=== PATIENT | female | born 1965 | race Caucasian/White ===

== ENCOUNTER → 2016-12-17 | Outpatient (CLI) | payer BC ==
[~2016-12-17] MED LIST: FISH OIL 1,0001 EACH PO; LISINOPRIL20 MG PO; MIRALAX17 GM PO; MOBIC15 MG PO; MULTI-DAY VITA1 EACH PO; NAPROXEN 250 M250 MG PO; NORCO 5-325 TA1 EACH PO; WELLBUTRIN 75 M75 MG PO
== END ==
LOC: US 08:30
DX: R33.9 Retention of urine, unspecified (principal); N20.0 Calculus of kidney

== ENCOUNTER → 2017-01-08 | Outpatient (CLI) | payer BC ==
[2017-01-08 11:02] LABS: RED BLOOD COUNT 4.5 M/UL (4.00-5.10); WHITE BLOOD COUNT 7.7 K/UL (4.5-11.0)
[2017-01-08 11:23] LABS: BUN/CREATININE RATIO 24 (0-10)
== END ==
LOC: OPSV2 10:00
PROVIDERS: Obstetrics & Gynecology
DX: Z01.810 Encounter for preprocedural cardiovascular examination (principal); Z01.812 Encounter for preprocedural laboratory examination; N81.89 Other female genital prolapse
CPT/HCPCS: 36415; 80048; 81001; 85025; 93005

== ENCOUNTER → 2020-10-25 | Outpatient (CLI) | payer BC ==
[~2020-10-25] MED LIST changes: +ALEVE220 MG PO; +ANASTROZOLE1 MG PO; +ASPIR 8181 MG PO; +COLACE 100MG C100 MG PO; +DEXTROAMP-AMPHE10 MG PO; +ELIQUIS2.5 MG PO; +HYDROCODON-ACE1 EAC2 PO; +IMDUR ER TAB 3030 MG PO; +KENALOG CREAM 015 GM TD; +LIPITOR TAB 2020 MG PO; +LOPRESSOR 25 MG25 MG PO; +LYRICA100 MG PO; +NITROSTAT0.4 MG SL; +PRINIVIL20 MG PO; +TYLENOL 325MG325 MG PO
== END ==
LOC: LBRF 14:26
DX: N20.0 Calculus of kidney (principal)
CPT/HCPCS: 74018

== ENCOUNTER → 2020-11-18 | Day surgery (SDC) | payer BC | END | disposition home or self-care (01) | LOC: OR 11:22 | DX: N20.0 Calculus of kidney (principal); J30.9 Allergic rhinitis, unspecified; M19.90 Unspecified osteoarthritis, unspecified site; E78.5 Hyperlipidemia, unspecified; I10 Essential (primary) hypertension; K21.9 Gastro-esophageal reflux disease without esophagitis; K58.9 Irritable bowel syndrome, unspecified; G47.33 Obstructive sleep apnea (adult) (pediatric); F41.9 Anxiety disorder, unspecified; F32.9 Major depressive disorder, single episode, unspecified; Z85.3 Personal history of malignant neoplasm of breast | CPT/HCPCS: C1769; C2617; J1100; J1885; J1956; J2001; J2250; J2405; J2704; J3010; J7030; J7120 ==

== ENCOUNTER → 2020-11-29 | Outpatient (CLI) | payer BC | LOC: RAD 16:11 | DX: S37.009D Unspecified injury of unspecified kidney, subsequent encounter (principal); N20.0 Calculus of kidney | CPT/HCPCS: 74018 ==

== ENCOUNTER → 2021-01-31 | Outpatient (CLI) | payer BC | LOC: RAD 14:33 | DX: N20.0 Calculus of kidney (principal) | CPT/HCPCS: 74018 ==

== ENCOUNTER → 2021-02-17 | Outpatient (CLI) | payer BC ==
[2021-02-17 12:55] LABS: HEMOGLOBIN 14.2 gm/dl (12.3-15.3); RED BLOOD COUNT 4.41 M/UL (4.00-5.10); WHITE BLOOD COUNT 6.4 K/UL (4.5-11.0)
[2021-02-17 13:18] LABS: BUN/CREATININE RATIO 22 (0-10)
== END ==
LOC: LAB 12:06
PROVIDERS: Family Medicine
DX: E78.5 Hyperlipidemia, unspecified (principal); I10 Essential (primary) hypertension; E55.9 Vitamin D deficiency, unspecified
CPT/HCPCS: 80053; 80061; 84439; 84443; 85027

== ENCOUNTER → 2021-10-16 | Outpatient (CLI) | payer MEDICARE | LOC: KOH-I 13:21 | DX: H53.9 Unspecified visual disturbance (principal); R41.3 Other amnesia; M54.2 Cervicalgia; M54.50 Low back pain, unspecified; M25.551 Pain in right hip; M25.512 Pain in left shoulder; M47.812 Spondylosis without myelopathy or radiculopathy, cervical region; M51.36 Other intervertebral disc degeneration, lumbar region; M51.37 Other intervertebral disc degeneration, lumbosacral region; N20.0 Calculus of kidney; Z96.641 Presence of right artificial hip joint; Z96.642 Presence of left artificial hip joint | CPT/HCPCS: 70551; 72040; 72100; 73522 ==

== ENCOUNTER → 2021-11-13 | Outpatient (CLI) | payer MEDICARE | LOC: KOH-I 11:11 | DX: M51.17 Intervertebral disc disorders with radiculopathy, lumbosacral region (principal); M51.16 Intervertebral disc disorders with radiculopathy, lumbar region; M89.38 Hypertrophy of bone, other site | CPT/HCPCS: 72148 ==

== ENCOUNTER → 2022-02-03 | Outpatient (CLI) | payer MEDICARE | LOC: RAD 12:28 | DX: M54.16 Radiculopathy, lumbar region (principal) | CPT/HCPCS: 73502 ==

== ENCOUNTER → 2022-02-23 | Outpatient (CLI) | payer MEDICARE ==
[2022-02-23 12:06] LABS: HEMOGLOBIN 13.6 gm/dl (12.3-15.3); RED BLOOD COUNT 4.29 M/UL (4.00-5.10); WHITE BLOOD COUNT 5.5 K/UL (4.5-11.0)
[2022-02-23 12:29] LABS: BUN/CREATININE RATIO 19 (0-10)
[2022-02-24 09:15] LABS: THYROID PEROXIDASE (TPO) AB 12 IU/mL (0-34)
[2022-02-24 22:11] LABS: THYROGLOBULIN ANTIBODY <1.0 IU/mL (0.0-0.9)
== END ==
LOC: LAB 10:41
PROVIDERS: Nurse Practitioner Family
DX: Z00.00 Encounter for general adult medical examination without abnormal findings (principal); R53.83 Other fatigue; M25.551 Pain in right hip; M25.552 Pain in left hip; F41.8 Other specified anxiety disorders; E78.5 Hyperlipidemia, unspecified; I10 Essential (primary) hypertension; R60.9 Edema, unspecified; E53.8 Deficiency of other specified B group vitamins; E55.9 Vitamin D deficiency, unspecified; R41.3 Other amnesia
CPT/HCPCS: 36415; 80053; 80061; 81001; 82607; 84439; 84443; 85025; 86376; 86800; 87086

== ENCOUNTER 2022-03-19 13:33 | Inpatient (IN) | payer MEDICARE ==
[~2022-03-19] VITALS: Ht 165.1 cm; Wt 97.1 kg
[~2022-03-19 13:33] MED LIST changes: +ADDERALL 20 MG20 MG PO; +BUPROPION HCL150 MG PO; -DEXTROAMP-AMPHE10 MG PO; -IMDUR ER TAB 3030 MG PO; +ISOSORBIDE MONO30 MG PO; -LYRICA100 MG PO; +LYRICA150 MG PO; -WELLBUTRIN 75 M75 MG PO
[2022-03-19 14:31] LABS: HEMOGLOBIN 14.3 gm/dl (12.3-15.3); RED BLOOD COUNT 4.43 M/UL (4.00-5.10); WHITE BLOOD COUNT 19.1 K/UL (4.5-11.0)
[2022-03-19] MEDS ORDERED: TRAZODONE HCL50 MG PO (18:25)
[2022-03-19] MEDS ORDERED: CYMBALTA30 MG PO (18:25)
[2022-03-19] MEDS ORDERED: FLOMAX 0.4 MG0.4 MG PO (18:25)
[2022-03-19] MEDS ORDERED: HYDROCHLOROTH12.5 MG PO (18:25)
[2022-03-19] MEDS ORDERED: HYDROCODON-ACE1 EAC4 PO (18:26)
[2022-03-19] MEDS ORDERED: TYLENOL PM EX-1 EACH PO (18:27)
[2022-03-19] MEDS ORDERED: ALEVE220 M1 PO (18:27)
[2022-03-20 05:46] LABS: HEMOGLOBIN 12.3 gm/dl (12.3-15.3); RED BLOOD COUNT 3.86 M/UL (4.00-5.10); WHITE BLOOD COUNT 10.2 K/UL (4.5-11.0)
[2022-03-21 01:59] LABS: HEMOGLOBIN 13.4 gm/dl (12.3-15.3); WHITE BLOOD COUNT 8.8 K/UL (4.5-11.0)
[2022-03-21 02:04] LABS: RED BLOOD COUNT 4.27 M/UL (4.00-5.10)
[2022-03-22 05:47] LABS: WHITE BLOOD COUNT 8.1 K/UL (4.5-11.0)
[2022-03-22 05:48] LABS: RED BLOOD COUNT 3.8 M/UL (4.00-5.10)
--- NOTE | 2022-03-22 21:41 | NUR ---
TIME 2102, TELE NOTIFIED PT HR OF 145, PT HAD EPISODE OF EMESIS X1, HR BACK TO 94, OFFERED PRN ZOFRAN IVP, PT REFUSED D/T NO IV ACCESS, OFFERED TO CALL MD TO GET PO NAUSEA MEDS, PT DECLINED AND STATED HER PAIN MEDS MADE HER NAUSEOUS. TIME 2144, PT IN BED WITH EYES CLOSED, RESP ENL, HR 92.
[2022-03-23 10:00] LABS: HEMOGLOBIN 12.6 gm/dl (12.3-15.3); RED BLOOD COUNT 3.92 M/UL (4.00-5.10); WHITE BLOOD COUNT 8.2 K/UL (4.5-11.0)
[2022-03-23] MEDS ORDERED: CEFUROXIME500 MG PO (11:23)
--- NOTE | 2022-03-23 13:21 | NUR ---
PT STATES HER CLOTHES AND SHOES ARE NOT IN HER ROOM. HELPED PT LOOK IN ROOM. CHECKED ADMISSION FORM WHICH STATED ITEMS WERE PRESENT AT BEDSIDE IN ICU. CALLED ICU WHO STATED CLOTHES WERE NOT THERE. CALLED PCU WHO STATED CLOTHES WERE NOT THERE. CALLED HOUSEKEEPING AND CLOTHES COULD NOT BE FOUND. PERSONALLY SEARCHED SOILED ROOMS ON PCU AND NO CLOTHES WERE FOUND. PT MADE AWARE.
== END 2022-03-23 13:30 | disposition home or self-care (01) | DRG 871 ==
LOC: ER1 13:33 → CDU 17:57 → CCU 20:13 → PROG CARE 03-20 15:24 → MED SURG 4 03-21 01:46
PROVIDERS: Physician Assistant; Preventive Medicine Occupational Medicine; ADMIT Internal Medicine Infectious Disease
PROC: 3E03329 Introduction of Other Anti-infective into Peripheral Vein, Percutaneous Approach (ICD-10-PCS; principal; 2022-03-19)
PROC: 3E043XZ Introduction of Vasopressor into Central Vein, Percutaneous Approach (ICD-10-PCS; 2022-03-19)
DX: A41.51 Sepsis due to Escherichia coli [E. coli] (principal); N17.0 Acute kidney failure with tubular necrosis; R65.21 Severe sepsis with septic shock; N10 Acute pyelonephritis; Z20.822 Contact with and (suspected) exposure to COVID-19; Z96.641 Presence of right artificial hip joint; E86.0 Dehydration; G89.29 Other chronic pain; M54.9 Dorsalgia, unspecified; E66.9 Obesity, unspecified; B96.20 Unspecified Escherichia coli [E. coli] as the cause of diseases classified elsewhere; E83.42 Hypomagnesemia; N20.0 Calculus of kidney; I10 Essential (primary) hypertension; Z85.3 Personal history of malignant neoplasm of breast; Z90.49 Acquired absence of other specified parts of digestive tract; Z90.710 Acquired absence of both cervix and uterus; Z84.1 Family history of disorders of kidney and ureter
CPT/HCPCS: 36415; 71045; 80048; 80053; 81001; 83036; 83605; 83690; 83735; 85025; 85652; 86140; 87040; 87077; 87086; 87186; 93005; 96365; 96375; 99285; J0696; J1644; J2185; J2405; J3475; U0002

== ENCOUNTER → 2022-03-30 | Outpatient (CLI) | payer MEDICARE ==
[~2022-03-30] MED LIST changes: +ALEVE220 M1 PO; +CEFUROXIME500 MG PO; +CYMBALTA30 MG PO; +FLOMAX 0.4 MG0.4 MG PO; +HYDROCHLOROTH12.5 MG PO; +HYDROCODON-ACE1 EAC4 PO; +TRAZODONE HCL50 MG PO; +TYLENOL PM EX-1 EACH PO
[2022-03-30 16:07] LABS: HEMOGLOBIN 13.9 gm/dl (12.3-15.3); RED BLOOD COUNT 4.36 M/UL (4.00-5.10); WHITE BLOOD COUNT 11.7 K/UL (4.5-11.0)
[2022-04-01 12:14] LABS: CREATININE, URINE 142.2 mg/dL (Not Estab.)
== END ==
LOC: RAD 15:06
PROVIDERS: Nurse Practitioner Family
DX: J18.9 Pneumonia, unspecified organism (principal); R31.9 Hematuria, unspecified; N20.0 Calculus of kidney; R79.89 Other specified abnormal findings of blood chemistry; I10 Essential (primary) hypertension; M25.50 Pain in unspecified joint; N17.9 Acute kidney failure, unspecified; R61 Generalized hyperhidrosis; E53.8 Deficiency of other specified B group vitamins; Z92.89 Personal history of other medical treatment; E55.9 Vitamin D deficiency, unspecified; R06.02 Shortness of breath
CPT/HCPCS: 71046; 74018; 80053; 80061; 82043; 82570; 82607; 83880; 84439; 84443; 85025; 85379; 85652; 86140